=== PATIENT | female | born 1955 | race Caucasian/White ===

== ENCOUNTER 2016-12-01 00:40 | Emergency (ER) | payer OTHER ==
[~2016-12-01] VITALS: Ht 157.5 cm; Wt 77.0 kg
[2016-12-01 00:42] VITALS: BP 182/83; PULSE 85; RESP 16; TEMP 97.5; O2SAT 97
[2016-12-01] MEDS ORDERED: ADVA100A INH (01:00)
[2016-12-01] MEDS ORDERED: XOPEAER4 INH (01:00)
[2016-12-01] MEDS ORDERED: LEVO75TA3 PO (01:00)
[2016-12-01 01:16] LABS: BACTERIA, URINE FEW /hpf; BLOOD, URINE LARGE (NEG); COMMENT (UR) CULTURE INDICATED; CULTURE IF INDICATED CULTURE INDICATED; GLUCOSE,URINE NEG (NEG); KETONE, URINE NEG (NEG); MUCUS URINE FEW /lpf (OCC); NITRITE,URINE NEG (NEG); PH, URINE 5.5 (5.0-8.5); SQUAMOUS EPITHELIAL CELL URINE 2 /hpf (0-5); URINE COLOR LIGHT-YELLOW (YELLW/STRAW)
--- NOTE | 2016-12-01 01:57 | PD ---
HPI Chief Complaint: Reverser Problem/Complaint Time Seen by Provider: 01:45 Travel History International Travel<30 days: No Contact w/Intl Traveler<30days: No Traveled to known affect area: No History of Present Illness HPI Patient is a 61-year-old female presents emergency Department with chief complaint of "I think I have a urinary tract infection though I'd never had one before." She states that she's been having some suprapubic abdominal discomfort as well as some burning and dysuria. For the past few days gradually worsening. Denies fevers denies it does E abdominal pain constipation diarrhea. States pain is gradually worsening. Denies any vaginal bleeding or vaginal discharge. PFSH Past Medical History Asthma: Yes COPD: Yes Tetanus Vaccination: < 5 Years Influenza Vaccination: No : 2 Para: 2 Past Surgical History Appendectomy: Yes Cholecystectomy: Yes Endocrine Surgery: Yes (half of thyroid) Tonsillectomy: Yes Other Surgery: Yes Social History Alcohol Use: Yes Tobacco Use: No Substance Use: No Allergies-Medications (Allergen,Severity, Reaction): Coded Allergies: Sulfa (Sulfonamide Antibiotics) (Verified Allergy, Severe, Hives, 12/01/16 ) amoxicillin (Verified Allergy, Severe, Hives, 12/01/16) ibuprofen (Verified Allergy, Severe, hive, 12/01/16) naproxen (Verified Allergy, Severe, Hives, 12/01/16) Reported Meds & Prescriptions Reported Meds & Active Scripts Active Pyridium (Phenazopyridine HCl) 100 Mg Tab 100 Mg PO Q8H PRN Macrobid (Nitrofurantoin Monoh/Nitrofur Macro) 100 Mg Cap 100 Mg PO BID 5 Days Reported Xopenex Hfa 15 GM Inh (Levalbuterol 15 GM Inh) 45 Mcg/Act Aer 45 Mcg INH Q4HR Shake well before using. (1 puff = 45 mcg) Advair Diskus Inh (Fluticasone-Salmeterol Inh) 100-50 Mcg/Blist Aer 1 Puff INH BID Rinse mouth after use. Levothyroxine (Levothyroxine Sodium) 75 Mcg Tab 75 Mcg PO DAILY Review of Systems Except as stated in HPI: all other systems reviewed are Neg Physical Exam Narrative GENERAL: Well-nourished, well-developed patient. SKIN: Focused skin assessment warm/dry. HEAD: Normocephalic. EYES: No scleral icterus. No injection or drainage. NECK: Supple, trachea midline. No JVD or lymphadenopathy. CARDIOVASCULAR: Regular rate and rhythm without murmurs, gallops, or rubs. RESPIRATORY: Breath sounds equal bilaterally. No accessory muscle use. GASTROINTESTINAL: Abdomen soft, non-tender, nondistended. No rebound no percussive tenderness. No CVA tenderness. MUSCULOSKELETAL: No cyanosis, or edema. BACK: Nontender without obvious deformity. No CVA tenderness. Data Data Last Documented VS Vital Signs Date Time Temp Pulse Resp B/P (MAP) Pulse Ox O2 Delivery O2 Flow Rate FiO2 12/01/16 02:36 88 132/70 (90) 98 12/01/16 00:55 18 12/01/16 00:42 97.5 Room Air Orders Orders Urinalysis - C+S If Indicated (12/01/16 01:00) Ed Urine Pregnancytest Poc (12/01/16 01:00) Urine Culture (12/01/16 00:50) Ed Discharge Order (12/01/16 02:05) Nitrofurantoin Monohyd Macrocr (Macrobid (12/01/16 02:15) Phenazopyridine (Pyridium) (12/01/16 02:30) Labs Laboratory Tests Test 12/01/16 00:50 Urine Color LIGHT-YELLOW Urine Turbidity CLOUDY Urine pH 5.5 Urine Specific [place] 1.013 Urine Protein 30 mg/dL Urine Glucose (UA) NEG mg/dL Urine Ketones NEG mg/dL Urine Occult Blood LARGE Urine Nitrite NEG Urine Bilirubin NEG Urine Urobilinogen LESS THAN 2.0 MG/DL Urine Leukocyte Esterase LARGE Urine RBC 135 /hpf Urine WBC /hpf Urine Squamous Epithelial Cells 2 /hpf Urine Amorphous Sediment RARE Urine Bacteria FEW /hpf Urine Mucus FEW /lpf Microscopic Urinalysis Comment CULTURE INDICATED MDM Medical Decision Making Medical Screen Exam Complete: Yes Emergency Medical Condition: Yes Differential Diagnosis UTI, cystitis, polynephritis unlikely. Narrative Course Patient roomed in emergency department, obvious UTI on UA, sent for urine culture. Patient has allergies to amoxicillin and sulfa, will start on Macrobid. No indication further workup at this time. She stable for discharge. Diagnosis Primary Impression: UTI (urinary tract infection) Qualified Codes: N30.00 - Acute cystitis without hematuria Med/Other Pt SpecificInfo: Prescription(s) given Scripts Phenazopyridine (Pyridium) 100 Mg Tab 100 MG PO Q8H Y for DYSURIA, #30 TAB 0 Refills Prov: Greg Clifton MD 12/01/16 Nitrofurantoin Monohydrate Macrocrystals (Macrobid) 100 Mg Cap 100 MG PO BID for Infection for 5 Days, #10 CAP 0 Refills Prov: Greg Clifton MD 12/01/16 Disposition: 01 DISCHARGE HOME Condition: Stable Greg Clifton MD Dec 01, 2016 01:57
[2016-12-01] MEDS ORDERED: MACR100C2 PO (02:05)
[2016-12-01] MEDS ORDERED: NITROFURANTOIN MONOHYD MACROCR 100 MG CAP PO ONE (02:15)
[2016-12-01] MEDS ORDERED: PHEN0.4T PO (02:23)
[2016-12-01] MEDS ORDERED: PHENAZOPYRIDINE HCL 100 MG TAB PO ONE (02:30)
[2016-12-01 02:36] VITALS: BP 132/70
== END 2016-12-01 02:36 | disposition home or self-care (01) ==
LOC: NEPE 00:40
DX: N30.00 Acute cystitis without hematuria (principal); B96.20 Unspecified Escherichia coli [E. coli] as the cause of diseases classified elsewhere; J44.9 Chronic obstructive pulmonary disease, unspecified
CPT/HCPCS: 81001; 84703; 87077; 87086; 87186; 99284